=== PATIENT | male | born 1975 | race Caucasian/White ===

== ENCOUNTER 2016-09-27 18:33 | Emergency (ER) | payer BC ==
[2016-09-27 18:41] VITALS: BP 144/88
[2016-09-27] MEDS ORDERED: PENICILLIN G BENZATHINE 2 ML SYRG IM ONE (19:58)
[2016-09-27] MEDS ORDERED: ACETAMINOPHEN 500 MG TABLET PO ONE (19:58)
[2016-09-27] MEDS ORDERED: AMOXICILLIN TRIHYDRATE 250 MG CAPSULE PO ONE (20:40)
[2016-09-27] MEDS ORDERED: AMOXICILLIN TRIHYDRATE 250 MG CAPSULE ONE (20:44)
--- OUTSIDE RECORDS SUMMARY | 2016-09-27 20:44 | XMS REPORT | Continuity of Care Document ---
:1975 Author Organization [facility] ([facility]) Address [address] [place] [address] Phone [phone] Care Team Providers Name Role Phone Unavailable Primary Care Provider Unavailable Source Comments This disclosure is being made pursuant to the Care Everywhere program, applicable federal and state laws, and may not contain all informaitonavailable regarding this patient.[facility] ([facility]) Active Allergies and Adverse Reactions Not on File Current Medications Not on file Active Problems Not on file Social History Tobacco Use Types Packs/Day Years Used Date Never Assessed Last Filed Vital Signs Vital Sign Reading Time Taken Blood Pressure - - Pulse - - Temperature - - Respiratory Rate - - Height - - Weight 82.899 kg (182 lb 12.2 oz) 04/03/2000 6:00 AM CDT Body Mass Index - - Oxygen Saturation - - Plan of Care Health Maintenance Due Date Last Done Comments Hepatitis B Vaccine (1 of 3 - Primary Series) 1975 Tdap Vaccine 12/13/1986 Lipid Disorder Screening 12/13/1993 MMR Vaccine 12/13/1993 Td Vaccine 12/13/1993 Influenza Vaccine: Seasonal (#1) 02/13/2016 Results from Last 3 Months Not on file
--- NOTE | 2016-09-27 20:47 | ERNOTE ---
ENT HPI Date of Service: 09/27/16 Presenting Symptoms: other - Sore throat Time Seen by Provider: 09/27/16 19:49 Source: patient, family, RN notes reviewed Exam Limitations: no limitations - Immun/Allergies/Home Medications Immunizations: IMMUNIZATION HX Immunizations Up to Date Yes History of Influenza Vaccine No Allergies/Adverse Reactions: Allergies Allergy/AdvReac Type Severity Reaction Status Date / Time No Known Allergies Allergy Unverified 09/27/16 18:41 Home Medications: HOME MEDICATIONS Amoxicillin 875 mg PO BID #20 tablet 09/27/16 [Last Taken Unknown] - History of Present Illness Narrative: 40 y/o male ambulatory to the ED for a sore throat and fever that began 2 days ago. He also reports a headache. He has been taking Tylenol for fever but has not had any since this morning. ENT Location: Present: throat Prearrival Treatment: Present: over the counter meds Associated Symptoms - ENT: Reports: fever, malaise, sore throat, headache. Denies: poor fluid intake, cough, nasal congestion/drainage, facial pain/ swelling, jaw swelling, ear drainage Prior Treament: Denies: recently seen Review of Systems - Review of Systems Constitutional: Present: fever, chills, fatigue, malaise EYE: Present: no symptoms reported ENT: Present: sore throat. Absent: ear pain, nose congestion Respiratory: Present: See HPI Cardiology: Present: no symptoms reported Gastrointestinal/Abdominal: Absent: nausea, vomiting, abdominal pain Genitourinary: Present: no symptoms reported Musculoskeletal: Present: no symptoms reported Skin: Absent: rash, lesions Neurological: Present: See HPI Endocrine: Present: no symptoms reported Hematologic/Lymphatic: Present: no symptoms reported Psych: Present: no symptoms reported - Patient's Past Medical History Patient History - Medical: No pertinent hx Patient History - Cardiac/Respiratory: Hypertension Patient History - Cancer: No Hx of Cancer Patient History - Surgical Procedures: No surgical history - Social History Living Situations: home Smoking Status: Former smoker Alcohol Use: none Drug Use: none - Immunizations Immunizations Up to Date: Yes History of Influenza Vaccine: No Physical Exam - Physical Exam General Appearance: Present: wd/wn, alert, no apparent distress, other - appears uncomfortable Eye Exam: Normal inspection: bilateral Ears, Nose, Throat: Present: pharyngeal erythema, tonsillar swelling. Absent: abnormal TM (R), abnormal TM (L), nasal congestion, sinus pain/drainage, tonsillar exudate Neck: Present: nontender, supple, lymphadenopathy (R), lymphadenopathy (L) Respiratory: Present: no respiratory distress, normal breath sounds, no accessory muscle use, lungs clear Cardiovascular/Chest: Present: regular rate, rhythm, no murmur, normal peripheral pulses Neurological Exam: Present: alert, oriented, normal mood/affect, no motor/ sensory deficits Skin Exam: Present: diaphoresis, other - face flushed ED Progress - Results and Orders Patient's Lab Results:: I have reviewed the patient's lab results. - Vital Signs Patient's Vital Signs:: I have reviewed the patient's vital signs. Vital Signs: Vital Signs 09/27/16 18:37 Temperature 36.8 C Pulse Rate 111 H Respiratory 20 Rate Blood Pressure 144/88 O2 Sat by Pulse 98 Oximetry - Progress/Reassessment Chief Complaint: Sore Throat Progress:: Unchanged Departure Clinical Impression: Acute streptococcal pharyngitis - Departure Disposition: Home self-care Condition: Good Instructions: Strep Throat, [id number], Form - Excuse from Work, School, or Physical Activity Prescriptions: Amoxicillin 875 mg PO BID #20 tablet
== END 2016-09-27 20:50 | disposition home or self-care (01) ==
LOC: ER 18:33
DX: J02.0 Streptococcal pharyngitis (principal); Z87.891 Personal history of nicotine dependence